=== PATIENT | female | born 1975 | race Caucasian/White ===

== ENCOUNTER 2022-03-04 10:09 | Day surgery (SDC) | payer OTHER ==
[~2022-03-04 10:09] MED LIST: Lactated Ringers 1,000 ML IV SCH; Sodium Chloride 0.9% 10 ML Syringe FLUSH PRN
[2022-03-04] MEDS ORDERED: Propofol 200 MG/20 ML SDV IV ONE (10:10)
[2022-03-04] MEDS ORDERED: Lactated Ringers 1,000 ML IV ONE (10:10)
== END 2022-03-04 13:47 | disposition home or self-care (01) ==
LOC: FB.SDS 10:09
PROVIDERS: ATTEND Surgery
DX: D12.6 Benign neoplasm of colon, unspecified (principal); D12.7 Benign neoplasm of rectosigmoid junction; Z79.899 Other long term (current) drug therapy; Z98.890 Other specified postprocedural states; Z91.013 Allergy to seafood; Z79.82 Long term (current) use of aspirin
CPT/HCPCS: 00812-QZ; 88305; J2704; J7120